=== PATIENT | female | born 1985 | race Caucasian/White ===

== ENCOUNTER 2023-10-24 07:56 | Outpatient (CLI) | payer BC, SELFPAY ==
[2023-10-24 08:32] LABS: Basophils Absolute Auto 0.04 K/mm3 (0.00-0.10); Basophils Percent Auto 0.9 % (0.0-1.0); Eosinophils Absolute Auto 0.06 K/mm3 (0.02-0.50); Eosinophils Percent Auto 1.3 % (1.0-6.0); Hematocrit 30.4 % (35.0-49.0); Hemoglobin 8.6 g/dL (12.0-15.0); Immature Granulocyte Absolute 0.01 K/mm3 (0.00-0.00); Immature Granulocyte Percent A 0.2 % (0.0-0.0); Lymphocytes Absolute Auto 1.76 K/mm3 (1.10-4.50); Lymphocytes Percent Auto 38.3 % (18.0-42.0); Mean Corpuscular HGB Conc 28.3 g/dL (32-36); Mean Corpuscular Volume 70.9 fL (78.0-102.0); Mean Platelet Volume 9.4 fl (9.2-11.8); Monocytes Absolute Auto 0.38 K/mm3 (0.10-0.90); Monocytes Percent Auto 8.3 % (2.0-11.0); Neutrophils Absolute Auto 2.34 K/mm3 (1.70-7.20); Platelet Count Result 320 K/mm3 (150-420); Red Blood Count 4.29 M/mm3 (4.20-5.40); Red Cell Distribution Width 17.9 % (11.6-14.4); White Blood Count 4.6 K/mm3 (4.8-10.8)
[2023-10-24 09:17] LABS: Alanine Aminotransferase 17 U/L (14-59); Albumin Level 3.5 g/dL (3.4-5.0); Alkaline Phosphatase 55 U/L (46-116); Anion Gap 10 mmol/L (4-12); Aspartate Amino Transferase 18 U/L (15-37); Bilirubin,Total 0.4 mg/dL (0.00-1.00); Blood Urea Nitrogen 9 mg/dL (7-18); Calcium 8.5 mg/dL (8.5-10.1); Carbon Dioxide 25 mmol/L (21-32); Chloride 104 mmol/L (98-108); Cholesterol 132 mg/dL (0-200); Estimated Glomerular Filt Rate > 60; Ferritin 5 ng/mL (8-252); Glucose 82 mg/dL (70-99); HDL Direct 77 mg/dL (40-60); LDL Cholesterol Calculated 46 mg/dL (<130); Osmolality Calculated 285 mOsm/kg (285-295); Potassium 4.3 mmol/L (3.5-5.1); Sodium 139 mmol/L (136-145); Thyroid Stimulating Hormone 2.05 uIU/mL (0.36-3.74); Triglycerides 46 mg/dL (0-150)
[2023-10-24 09:23] LABS: Vitamin B12 < 80 pg/mL (193-986)
== END 2023-10-24 07:57 | disposition home or self-care (01) ==
PROVIDERS: PCP Family Medicine; Visit Provider Family Medicine
DX: Z00.00 Encounter for general adult medical examination without abnormal findings (principal); Z98.84 Bariatric surgery status; Z79.899 Other long term (current) drug therapy
CPT/HCPCS: 36415; 80053; 80061; 82607; 82728; 84443; 85025

== ENCOUNTER 2024-04-27 15:14 | Outpatient (CLI) | payer BC, SELFPAY ==
--- NOTE | ~2024-04-27 | XR_ITS ---
Lumbosacral Spine: AP, oblique, and lateral views Clinical History: Pain Findings: The normal lordotic curve is maintained. The vertebral bodies and posterior elements are i ntact. The intervertebral disc spaces are preserved. The sacroiliac joints are normally outlined. Impression: No significant abnormality. Reviewed, dictated and finalized at [facility]. Impression: No significant abnormality.
== END 2024-04-27 15:15 | disposition home or self-care (01) ==
LOC: GOSHIMG 15:16
PROVIDERS: PCP Family Medicine; Visit Provider Family Medicine
DX: M54.50 Low back pain, unspecified (principal); M25.552 Pain in left hip
CPT/HCPCS: 72110

== ENCOUNTER 2024-05-24 15:34 | Outpatient (RCR) | payer BC, SELFPAY ==
--- NOTE | 2024-05-24 16:43 | PTOPEVAL1 ---
Assessment and note entered by Richelle Domingo DPT Evaluation Information Assessment Status Evaluation Diagnosis low back pain, left leg pain ICD-10 Condition Codes (PT) M54.16 Other ICD-10 Condition Codes ( m54.17 PT) Onset 04/28/24 Subjective Information Patient reports within the last year her back pain has increase. She reports in February pain started to radiate down the L LE and is getting worse. She reports that the chiropractor was not able to help with pain but has in the past. She reports a massage gun has helped decrease pain the last few days. She reports pain is down the back of the L LE and to the L thomson. She reports pain is worse with sitting at her desk, getting out of a chair, driving and sleeping. She reports walking will temporarily decrease pain. x-rays were negative Reported Pain Level Pain Score 2: Self Report Assessment PT Clinical Summary Mrs. Vale is a 38 year old female who presents to PT with low back pain that radiates to the L LE . She demonstrates decreased L LE and core strength, decreased L LE flexibility, and positive slump test on the L indicating possible sciatic nerve involvement. She has difficulty sitting at her desk, driving long distances and sleeping. She would benefit from skilled PT to address impairments and return to PLOF. Plan of Care Interventions Electrical Stimulation,Gait Training,Hot Pack/Cold Pack,Manual Therapy,Mechanical Traction,Neuro Re- education,Patient/Caregiver Educati,Therapeutic Activities,Therapeutic Exercise PT Services Indicated Yes Treatment Frequency and 2x weekly for 10 visits Duration These treatments will address the objective and functional deficits as defined above. The patient will be advanced safely and appropriately in order for the patient to progress towards his/her prior level of function. Additional exercises will be introduced and as well as a comprehensive home exercise program upon discharge, if needed, ?to ensure carryover of functional gains achieved in the clinic. This treatment plan has been reviewed and agreement upon by the patient.
== END 2024-06-22 17:00 | disposition home or self-care (01) ==
LOC: CHSPT 15:34
PROVIDERS: Visit Provider Family Medicine
DX: M54.17 Radiculopathy, lumbosacral region (principal)
CPT/HCPCS: 97012; 97014; 97110; 97140; 97161; G0283

== ENCOUNTER 2024-12-10 06:58 | Outpatient (CLI) | payer BC, SELFPAY ==
--- OUTSIDE RECORDS SUMMARY | 2024-12-10 07:01 | XMS_ITS | Clinical Summary ---
Author Organization [facility] [address] Address [address] [place] [address] Phone Care Team Providers Care It Analyst Name Role Phone Zackary Vazquez MD Primary Care Provider [phone] Rebecca Latif PT Unavailable Unavailable Allergies Active Allergy Reactions Criticality Noted Date Comments Sulfa (Sulfonamide Antibiotics) Unknown Low Medications ketoconazole (NIZORAL) 2 % shampoo APPLY TO SCALP EVERY OTHER DAY AND RINSE as needed 5 7 Active cyanocobalamin (Vitamin B-12) 500 mcg tablet Take 500 mcg by mouth every morning. Active iron 18 mg tablet Take 1 tablet by mouth every morning. Active Lactobac 40-Bifido 3-S.thermop 100 billion cell capsule Take 1 capsule by mouth every morning. Active DAILY-RAJNI tablet Take 2 tablets by mouth daily 11 9 Active nitrofurantoin monohydrate (MACROBID) 100 mg capsuleIndicatio ns:Frequent UTI Take one tablet by mouth before and after intercourse. 30 capsule 3 3 Active Additional Information Patient not taking.Reported on 08/04/2023 Active Problems Problem Noted Date Diagnosed Date Status post bariatric surgery 09/13/2018 Morbid (severe) obesity due to excess calories 0 08/10/2018 Overview (08/10/2018): Added automatically from request for surgery [id number] ' 02/04/2018 Stress incontinence in female 12/01/2012 Overview (10/22/2016): Urinary, incontinence, stress female Surgical History Surgery Date Site/Laterality Comments DILATION AND CURETTAGE OF UTERUS 07/20/2011 - 07/19/2012 missed SECTION 07/20/2008 - 07/19/2009 SECTION 07/20/2012 - 07/19/2013 CHIDI-EN-Y PROCEDURE Medical History Medical History Date Comments History of molluscum contagiosum 2014 cryotherapy PONV (postoperative nausea and vomiting) Family History Medical History Relation Name Comments Rectal cancer Cousin Hyperlipidemia Father Hypertension Father Melanoma Father overweight Father Bladder Cancer Father's Brother Cancer Maternal Grandfather prostat e and larynx overweight Mother Breast cancer Mother's Sister Diabetes Paternal Grandmother Heart attack Paternal Grandmother [place] or C [place]; unsure which one Relation Name Status Comments Cousin Father Father's Brother Maternal Grandfather Mother Mother's Sister Paternal Grandmother Social History Tobacco Use Types Packs/Day Years Used Date Smoking Tobacco: Never Passive Smoke Exposure: Never Smokeless Tobacco: Never Tobacco Cessation:Counseling Given: Not Answered Alcohol Use Standard Drinks/Week Comments Yes 0 (1 standard drink = 0.6 oz pur e alcohol) occassionallly Comments No Sex and Gender Information Value Date Recorded Sex Assigned at Not on file Legal Sex Female 8:48 PM LOGISTICS CENTER MANAGER Gender Identity Not on file Sexual Orientation Not on file 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 on wanda e Obstetrics History Para Term AB IAB SAB Ectopic Multiple Livin g Live Births 3 2 2 0 1 0 1 0 0 2 2 Date Outcome GA Total Labor Labor/2nd/3rd Weight Sex Type Anes PTL Shante A1 A5 Name Clin Term Term SAB Last Filed Vital Signs Vital Sign Reading Time Taken Comments Blood Pressure 132/82 08/04/2023 3:30 PM LOGISTICS CENTER MANAGER Pulse 65 08/26/2019 3:04 PM LOGISTICS CENTER MANAGER Temperature 36.3 C (97.3 F) 06/29/2020 3:33 PM LOGISTICS CENTER MANAGER Respiratory Rate 16 09/08/2018 11:00 AM LOGISTICS CENTER MANAGER Oxygen Saturation 96% 09/08/2018 9:38 AM LOGISTICS CENTER MANAGER Inhaled Oxygen Concentration - - Weight 96.2 kg (212 lb) 08/04/2023 3:30 PM LOGISTICS CENTER MANAGER Height 172.7 cm (5' 8) 08/04/2023 3:30 PM LOGISTICS CENTER MANAGER Body Mass Index 32.23 08/04/2023 3:30 PM LOGISTICS CENTER MANAGER Plan of Treatment Health Maintenance Due Date Last Done Comments Breast Cancer Screening-Mammogram 1983 Depression Screening 1985 DTaP/Tdap/Td Vaccine (1 - Tdap) 1994 Varicella Vaccines (1 of 2 - 13+ 2-dose series) 1996 Hepatitis B Screening 2001 Cervical Cancer Screening 08/04/20242023, 08/04/2023, 06/24/2018, Additional history exists Regular Well Visit/Exam 18-64 08/04/2024 08/04/2023, 07/31/2022, 07/01/2021, Additional history exists Influenza Vaccine (Season Ended) 2025 05/12/2020 Hepatitis C Screening Completed 01/13/2012, 012 HPV Vaccines Aged Out No longer eligi ble based on patient's age to complete this topic Pneumococcal vaccine <65 Aged Out No longer eligible based on patient's age to complete this topic Procedures Procedure Name Priority Date/Time Associated Diagnosis Comments HIGH RISK HPV DNA DETECTION WITH GENOTYPING Routine 08/04/2023 3:46 PM LOGISTICS CENTER MANAGER Screening for malignant neoplasm of cervix SERUM HEPATITIS C AB Routine 01/13/2012 12:52 PM CDT from Last 3 Months or Most Recently Relevant to Health Maintenance Results * High Risk HPV DNA Detection with Genotyping (Molecular component) (08/04/2023 3:46 PM LOGISTICS CENTER MANAGER) HPV HR 16 Not Detected Not Detected JOSEFINA Comment:Testing performed by : [facility], [address] [place] [address] HPV HR 18 Not Detected Not Detected JOSEFINA Comment:Testing performed by : [facility], [address] [place]., [address] HPV HR Non 16/18 Not Detected Not Detected JOSEFINA Comment: Interpretive Data Nucleic acid amplification for detection of high-risk Human Papilloma virus (HPV) is performed by the Flex Susan 6800 HPV test. This assay specifically detects HPV-16 and HPV-18 genotypes. The following HPV genotypes are detected as high-risk HPV: HPV-31, 33, 35, ,39, 45, 51, 52, 56, 58, 59, 66, and 68. This assay has been approved by the [place] Food and Drug Administration for detection of HPV in cervical specimens collected by a physician using an endocervical brush/spatula or cervical broom and placed in the ThinPrep Pap Test PreservCyt collection containers. The performance characteristics of this test have been verified by the [facility] Molecular Infectious Disease laboratory. Correlate with separately reported cytology results, as applicable. Interpretive data last revised 23 Testing performed by: [facility], [address] [place]., [address] Endocervical 08/04/2023 3:46 PM LOGISTICS CENTER MANAGER 08/05/2023 3:05 PM LOGISTICS CENTER MANAGER Narrative JOSEFINA QUIJANO - 08/06/2023 11:59 PM LOGISTICS CENTER MANAGER Clinical history and diagnosis->Liquid-based PAP test with high risk HPV test- Z12.4 Number of vials->1 Testing type->Screening Last menstrual period (date if known)->07/15/2023 Chelly Grimm DO LAB BODY FLUIDS AND STO OLS ORDERABLES Final Result Performing Organization Address City/[facility]/ZIP Co de Phone Number [facility] [address] [place] [address] * Serum Hepatitis C ab (01/13/2012 12:52 PM CDT) HCV ab NON-REACTI VE NON-REACTI VE HISTORICAL RESULTS Hepatitis signal to cutoff ratio 0.02 <1.00 HISTORICAL RESULTS Serum 01/13/2012 12:5 2 PM CDT Historical Provider LAB BLOOD ORDERABLES Erendira carvajal Result HISTORICAL RESULTS from Last 3 Months or Most Recently Relevant to Health Maintenance Insurance [employer] [place] [employer] [place] [address] BL[place] CHO[place] [employer] ACCESS Member Subscriber Plan / Payer (Ef fective 2023-Present) Name:Nico Vale Member ID:[id number] Relation to Subscriber:Self Name:Abilio Valekvng Carvajal Subscriber ID:[id number] Payer ID:[id number] (NAIC) Type:[employer] Address: [address] [place] [id number] Advance Directives For more information, please contact: [phone] * Full Code (Latest Code Status on File) Date Activated Date Inactivated Comments 09/06/2018 11:20 AM 09/08/2018 5:21 PM * Full Code Date Activated Date Inactivated Comments 06/25/2017 8:41 AM 09/06/2018 5:18 AM Care Teams It Analyst Relationship Specialty Start Date End Date Zackary Vazquez MD [address] [address] PCP - General 10/17/16 Rebecca Latif PT Physical Therapist Physical Therapy 02/26/18
--- OUTSIDE RECORDS SUMMARY | 2024-12-10 07:02 | XMS_ITS | Referral Summary ---
Author Organization [facility] [address] Address [address] [place] [address] Phone Care Team Providers Care Malted Milk Supervisor Name Role Phone Zackary Vazquez MD Primary Care Provider [phone] Rebecca Latif PT Unavailable Unavailable Allergies Active [...] (08/10/2018): Added automatically from request for surgery [id number] ' 02/04/2018 Stress incontinence in female 12/01/2012 Overview (10/22/2016): Urinary, incontinence, stress female Social History Tobacco Use Types Packs/Day Years Used Date Smoking Tobacco: Never Passive Smoke Exposure: Never Smokeless Tobacco: Never Tobacco Cessation:Counseling Given: Not Answered Alcohol Use Standard Drinks/Week Comments Yes 0 (1 standard drink = 0.6 oz pur e alcohol) occassionallly Comments No Sex and Gender Information Value Date Recorded Sex Assigned at Not on file Legal Sex Female 8:48 PM RESTAURANT SERVER Gender Identity Not on file Sexual Orientation Not on file 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 on wanda e Last Filed Vital Signs Vital Sign Reading Time Taken Comments Blood Pressure 132/82 08/04/2023 3:30 PM RESTAURANT SERVER Pulse 65 08/26/2019 3:04 PM RESTAURANT SERVER Temperature 36.3 C (97.3 F) 06/29/2020 3:33 PM RESTAURANT SERVER Respiratory Rate 16 09/08/2018 11:00 AM RESTAURANT SERVER Oxygen Saturation 96% 09/08/2018 9:38 AM RESTAURANT SERVER Inhaled Oxygen Concentration - - Weight 96.2 kg (212 lb) 08/04/2023 3:30 PM RESTAURANT SERVER Height 172.7 cm (5' 8) 08/04/2023 3:30 PM RESTAURANT SERVER Body Mass Index 32.23 08/04/2023 3:30 PM RESTAURANT SERVER Plan of Treatment Not on file Procedures Procedure Name Priority Date/Time Associated Diagnosis Comments HIGH RISK HPV DNA DETECTION WITH GENOTYPING Routine 08/04/2023 3:46 PM RESTAURANT SERVER Screening for malignant neoplasm of cervix SERUM HEPATITIS C AB Routine 01/13/2012 12:52 PM CDT from Last 3 Months or Most Recently Relevant to Health Maintenance Results * High Risk HPV DNA Detection with Genotyping (Molecular component) (08/04/2023 3:46 PM RESTAURANT SERVER) HPV HR 16 Not Detected Not Detected JOSEFINA QUIJANO Comment:Testing performed by : [facility], [address] [facility], [place]., [address] HPV HR 18 Not Detected Not Detected JOSEFINA QUIJANO Comment:Testing performed by : [facility], [address] [place]., [address] HPV HR Non 16/18 Not Detected Not Detected JOSEFINA QUIJANO Comment: Interpretive Data Nucleic acid amplification for [...] this test have been verified by the [facility] Molecular Infectious Disease laboratory. Correlate with separately reported cytology results, as applicable. Interpretive data last revised 23 Testing performed by: [facility], [address] [place]., [address] Endocervical 08/04/2023 3:46 PM RESTAURANT SERVER 08/05/2023 3:05 PM RESTAURANT SERVER Narrative JOSEFINA QUIJANO - 08/06/2023 11:59 PM RESTAURANT SERVER Clinical history and diagnosis->Liquid-based PAP test with high risk HPV test- Z12.4 Number of vials->1 Testing type->Screening Last menstrual period (date if known)->07/15/2023 Chelly Grimm DO LAB BODY FLUIDS AND STO OLS ORDERABLES Final Result JOSEFINA QUIJANO [address] Department [place] [address] * Serum Hepatitis C ab (01/13/2012 12:52 PM CDT) HCV ab NON-REACTI VE NON-REACTI VE HISTORICAL RESULTS Hepatitis signal to cutoff ratio 0.02 <1.00 HISTORICAL RESULTS Serum 01/13/2012 12:5 2 PM CDT Historical Provider LAB BLOOD ORDERABLES Erendira carvajal Result HISTORICAL RESULTS from Last 3 Months or Most Recently Relevant to Health Maintenance Insurance [employer] [place] [employer] [facility] [employer] [place] [employer] [place] Member Subscriber Plan / Payer ( fective 2013-Present) Name:Nico Vale Relation to Subscriber:Spouse Name:SHELBY VALESHGINGER Evans Date of :1983 (Home) Address: [address] [place] [address] Payer ID:[id number] (NAIC) Group ID:[id number] Type: OTHER Address: [address] [place] [address] [place] [address] ACCESS Advance Directives For more information, please contact: [phone] * Full Code (Latest Code Status on File) Date Activated Date Inactivated Comments 09/06/2018 11:20 AM 09/08/2018 5:21 PM * Full Code Date Activated Date Inactivated Comments 06/25/2017 8:41 AM 09/06/2018 5:18 AM Care Teams Malted Milk Supervisor Relationship Specialty Start Date End Date Zackary Vazquez MD [address] [address] PCP - General 10/17/16 Rebecca Latif PT Physical Therapist Physical Therapy 02/26/18
[2024-12-10 07:18] LABS: Basophils Absolute Auto 0.04 K/mm3 (0.00-0.10); Eosinophils Absolute Auto 0.06 K/mm3 (0.02-0.50); Eosinophils Percent Auto 1.5 % (1.0-6.0); Hematocrit 38.5 % (35.0-49.0); Lymphocytes Absolute Auto 1.57 K/mm3 (1.10-4.50); Lymphocytes Percent Auto 39.3 % (18.0-42.0); Mean Corpuscular HGB Conc 31.2 g/dL (32-36); Mean Corpuscular Hemoglobin 25.8 pg (27.0-31.0); Mean Corpuscular Volume 82.6 fL (78.0-102.0); Mean Platelet Volume 9.4 fl (9.2-11.8); Monocytes Absolute Auto 0.33 K/mm3 (0.10-0.90); Monocytes Percent Auto 8.3 % (2.0-11.0); Neutrophils Percent Auto 49.9 % (50.0-70.0); Platelet Count Result 309 K/mm3 (150-420); Red Blood Count 4.66 M/mm3 (4.20-5.40); Red Cell Distribution Width 17.6 % (11.6-14.4)
[2024-12-10 07:46] LABS: Alanine Aminotransferase 16 U/L (6-35); Albumin Level 4.3 g/dL (3.5-5.1); Alkaline Phosphatase 76 U/L (38-126); Anion Gap 9 mmol/L (4-12); Aspartate Amino Transferase 35 U/L (14-36); Bilirubin,Total 0.4 mg/dL (0.2-1.3); Blood Urea Nitrogen 8 mg/dL (7-17); Calcium 8.7 mg/dL (8.4-10.2); Carbon Dioxide 21 mmol/L (22-30); Chloride 111 mmol/L (98-107); Cholesterol 179 mg/dL (0-200); Estimated Glomerular Filt Rate > 60; Glucose 75 mg/dL (65-110); HDL Direct 100 mg/dL; LDL Cholesterol Calculated 55 mg/dL (<130); Osmolality Calculated 289 mOsm/kg (285-295); Sodium 141 mmol/L (137-145); Total Protein 7.2 g/dL (6.3-8.2); Triglycerides 120 mg/dL (<150)
== END 2024-12-10 06:59 | disposition home or self-care (01) ==
LOC: CHSLAB 07:00
PROVIDERS: PCP Student in an Organized Health Care Education/Training Program; Visit Provider Student in an Organized Health Care Education/Training Program
DX: K95.89 Other complications of other bariatric procedure (principal); D50.8 Other iron deficiency anemias; Z13.220 Encounter for screening for lipoid disorders; F32.A Depression, unspecified; F41.9 Anxiety disorder, unspecified; E66.9 Obesity, unspecified; Z68.32 Body mass index [BMI] 32.0-32.9, adult; E53.8 Deficiency of other specified B group vitamins; F10.20 Alcohol dependence, uncomplicated; R53.83 Other fatigue
CPT/HCPCS: 36415; 80053; 80061; 82607; 82728; 84443; 85025

== ENCOUNTER 2024-12-15 14:35 | Outpatient (CLI) | payer BC, SELFPAY ==
--- NOTE | ~2024-12-15 | MM_ITS ---
EXAMINATION: MM screening elza BI w michelle HISTORY: Screening TECHNIQUE: Craniocaudal and mediolateral oblique 3-D tomosynthesis images were obtained and synthetic 2-D images were generated. CAD analysis was submitted and interpreted. COMPARISON: No prior mammogram is available for comparison at this institution. BREAST PARENCHYMAL COMPOSITION: Dense: The breasts are heterogeneously dense, which may obscure small masses FINDINGS: There is no evidence of suspicious mass, calcification, or architectural distortion to sugg est malignancy in either breast. There has been no suspicious interval change. IMPRESSION: 1. No mammographic evidence of malignancy. 2. Recommend routine screening mammography in one year. BI-RADS Category 1: Negative Reviewed, dictated and finalized at location A.
== END 2024-12-15 14:36 | disposition home or self-care (01) ==
LOC: CHSIMG 14:36
PROVIDERS: PCP Student in an Organized Health Care Education/Training Program; Visit Provider Student in an Organized Health Care Education/Training Program
DX: Z12.31 Encounter for screening mammogram for malignant neoplasm of breast (principal)
CPT/HCPCS: 77063; 77067